=== PATIENT | female | born 1995 | race Caucasian/White ===

== ENCOUNTER 2018-02-16 04:35 | Emergency (ER) | payer BC, OTHER ==
--- NOTE | 2018-02-16 05:12 | EDPHY ---
H & P Stated Complaint: taking an out of date abx for chin lesion, thinks she's having allergic rxn Time Seen by Provider: 02/16/18 04:53 HPI/ROS: Chief Complaint: Allergic reaction HPI: 22-year-old woman began taking an old prescription of Bactrim for a lesion on her chin that she thought was a staph infection. She has a history of staph infections in the past has been treated with Bactrim. She also has been told however that she is allergic to sulfa and has had some swelling in the past. Yesterday evening she notice some increasing redness on the backs of her hands with some swelling. She also noticed a little bit of irritation at the tip of her tongue. She did take some Benadryl drill without relief. 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 She denies any other skin rash. No blistering. No mouth sores. No shortness of breath. No lightheadedness. No fevers or chills. Patient has also been using a topical acne cream on her chin and she believes she may have burned herself and over done it over her chin lesion. ROS: 10 point Review of Systems is negative except as noted in the HPI. Social History: No smoking, no alcohol, no recreational drug use Family History: non-contributory Physical Exam: Gen: Awake, Alert, No Distress HEENT: Chin she has a mild erythematous lesion on her chin consistent with acne vulgaris Nose: no rhinorrhea Eyes: PERRLA, EOMI Mouth: Moist mucosa no intraoral lesions. No mucosal irritation or sloughing Neck: Supple, no JVD Chest: nontender, lungs clear to auscultation Heart: S1, S2 normal, no murmur Abd: Soft, non-tender, no guarding Back: no CVA tenderness, no midline tenderness Ext: no edema, non-tender Skin: She is a bilateral erythematous rash on the dorsum of both her hands with moderate amount of swelling. There is no palmar involvement. It is blanching. 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 I do not see any evidence of Awad-Freddy syndrome at this time. She will continue with oral Benadryl. She will discontinue the Bactrim. Will refer for outpatient follow-up for further care. She will return for any concerns. Departure - Departure Disposition: Home, Routine, Self-Care Clinical Impression: Allergic reaction Condition: Good Instructions: General Allergic Reaction (ED) Additional Instructions: Follow up with primary care physician 2-3 days for further evaluation. Discontinue taking the Bactrim. You may take Benadryl according the package instructions [id number] for any symptoms. Return for worsening rash, significant blistering, mouth lesions, difficulty breathing, fevers or chills, or any other concerns. Referrals: Drea Cardenas MD [[facility] Primary Care Provider] - As per Instructions
[2018-02-16 05:13] VITALS: BP 153/91
== END 2018-02-16 05:40 | disposition home or self-care (01) ==
DX: M79.89 Other specified soft tissue disorders (principal); T36.8X5A Adverse effect of other systemic antibiotics, initial encounter

== ENCOUNTER → 2018-07-16 | Outpatient (CLI) | payer BC | LOC: BMCIMAGING 11:45 | PROVIDERS: ATTEND Family Medicine | DX: M54.5 Low back pain (principal) ==